=== PATIENT | male | born 1980 | race Caucasian/White ===

== ENCOUNTER → 2019-04-10 | Day surgery (SDC) | payer MEDICARE, OTHER ==
[~2019-04-10] MED LIST: CEFTRIAXONE SOD 1 GM/NS 50 ML 50 ML IV ONE; CELEXA20 MG PO; CHLORZOXAZONE500 MG PO; FENTANYL CITRATE/PF 100MCG/2 ML INJ ONE; FLONASE ALLERG9.9 ML; GABAPENTIN300 MG PO; LIDOCAINE HCL 2% LOCAL INJ 5 ML SDV VIAL INJ ONE; LIDOCAINE JELLY 2% 10ML URO-JET ONE; LYRICA75 MG PO; MELOXICAM7.5 MG PO; PANTOPRAZOLE SO40 MG PO; PROPOFOL IV EMULSION 10 MG/ML 20 ML VIAL ONE; VIBERZI75 MG PO; XANAX0.5 MG PO; ZOFRAN8 MG PO
[2019-04-10 09:37] LABS: BASOPHILS # (AUTO) 0.1 (0.0-0.1); BASOPHILS % 0.8 % (0.0-1.0); EOSINOPHILS # (AUTO) 0.2 (0.0-0.4); EOSINOPHILS % 3.8 % (0.0-6.0); HEMATOCRIT 45.2 % (38.2-49.6); HEMOGLOBIN 15.8 g/dL (14.0-18.0); LYMPHOCYTES # (AUTO) 1.6 (1.0-3.2); LYMPHOCYTES % 25.2 % (18.0-39.1); MEAN CORPUSCULAR HEMOGLOBIN 31.2 pg (28-32); MEAN CORPUSCULAR VOLUME 89.2 fL (81-99); MONOCYTES # (AUTO) 0.7 (0.2-0.8); MONOCYTES % 10.8 % (4.4-11.3); NEUTROPHILS # (AUTO) 3.8 (2.1-6.9); NEUTROPHILS % 59.1 % (38.7-80.0); PLATELET COUNT 216 x10e3/uL (140-360); RED BLOOD COUNT 5.07 x10e6/uL (4.3-5.7); RED CELL DISTRIBUTION WIDTH 12.3 % (11.7-14.4)
[2019-04-10 09:55] LABS: BLOOD UREA NITROGEN 15 mg/dL (7-26); BUN/CREATININE RATIO 19 (6-25); CALCIUM 9.9 mg/dL (8.4-10.2); CARBON DIOXIDE 25 mmol/L (22-29); CHLORIDE 106 mmol/L (98-107); EST GLOMERULAR FILTRATION RATE > 60 ML/MIN (60-); GLUCOSE 97 mg/dL (74-118); SODIUM 141 mmol/L (136-145)
[2019-04-10 13:05] VITALS: BP 139/88
--- NOTE | 2019-05-29 17:55 | Operative Report ---
DATE OF PROCEDURE: 04/10/2019 SURGEON: Toribio Caraballo MD PREOPERATIVE DIAGNOSIS: Bladder outlet obstruction. POSTOPERATIVE DIAGNOSIS: Bladder outlet obstruction. OPERATIVE PROCEDURE PERFORMED: Cystoscopy. ANESTHESIA: MAC. ESTIMATED BLOOD LOSS: Minimal. INDICATIONS: Mr. Ted Singh is a 38-year-old gentleman with a long history of bladder outlet obstruction, which is not responded adequately to medical management. He now presents for definitive surgical diagnosis of this problem. PROCEDURE IN DETAIL: The patient was brought into the operating room and placed in the supine position. After initiation of MAC anesthesia, flexible cystoscopy was performed. The anterior and posterior urethra were noted to be normal. The prostate revealed a short fossa with evidence of primary bladder neck obstruction with a tight opening noted to the bladder neck. The bladder was entered without difficulty. Upon entrance into the bladder, the ureteral orifices were normal, anatomical position, and produced clear efflux. There were grade 1 to 2 trabeculations appreciated. There were no mucosal lesions identified. The cystoscope was then removed and the patient was taken to the postanesthesia care unit in good condition. Of note, the needle and instrument count were correct at the conclusion of the case. Toribio Caraballo MD HLW/MODL /[id number]
== END | disposition home or self-care (01) ==
LOC: EDBD 02-27 09:00 → OR 08:51
PROVIDERS: ATTEND Urology
DX: N32.0 Bladder-neck obstruction (principal); N32.89 Other specified disorders of bladder; K85.90 Acute pancreatitis without necrosis or infection, unspecified; G47.33 Obstructive sleep apnea (adult) (pediatric); K21.9 Gastro-esophageal reflux disease without esophagitis; K58.9 Irritable bowel syndrome, unspecified; I10 Essential (primary) hypertension; E78.5 Hyperlipidemia, unspecified; M54.9 Dorsalgia, unspecified; M54.2 Cervicalgia; G43.909 Migraine, unspecified, not intractable, without status migrainosus; M19.90 Unspecified osteoarthritis, unspecified site; F43.10 Post-traumatic stress disorder, unspecified; F32.9 Major depressive disorder, single episode, unspecified; F41.9 Anxiety disorder, unspecified; Z87.891 Personal history of nicotine dependence
CPT/HCPCS: 36415; 52000; 80048; 85025; J0696; J2001; J2704; J3010